=== PATIENT | female | born 1975 | race Caucasian/White ===

== ENCOUNTER 2017-08-09 08:00 | Outpatient (CLI) | payer SELFPAY ==
[2017-08-09 19:02] LABS: BASOPHILS # (AUTO) 0.1 10^3/uL (0.0-0.1); BASOPHILS % (AUTO) 0.4 %; EOSINOPHILS # (AUTO) 0.1 10^3/uL (0.0-0.7); EOSINOPHILS % (AUTO) 0.7 %; HGB - HEMOGLOBIN 13.8 g/dL (12.0-16.0); LYMPHOCYTES # (AUTO) 3.1 10^3/uL (1.5-3.5); LYMPHOCYTES % (AUTO) 21.7 %; MEAN CORPUSCULAR HEMOGLOBIN 28.9 pg (27.0-31.0); MEAN CORPUSCULAR HGB CONC 32.8 g/dL (32.0-36.0); MEAN PLATELET VOLUME 7.8 fL (7.9-10.8); MONOCYTES # (AUTO) 0.7 10^3/uL (0.0-1.0); MONOCYTES % (AUTO) 5.1 %; NEUTROPHILS # (AUTO) 10.4 10^3/uL (1.5-6.6); NEUTROPHILS % (AUTO) 72.1 %; PLT - PLATELET COUNT 278 10^3/uL (130-450); RED BLOOD COUNT 4.79 10^6/uL (4.20-5.40); RED CELL DISTRIBUTION WIDTH 12.6 % (12.0-15.0); WHITE BLOOD COUNT 14.4 x10^3/uL (4.8-10.8)
[2017-08-09 19:36] LABS: ALBUMIN 4.3 g/dL (3.2-5.5); ALBUMIN/GLOBULIN RATIO 1.5 (1.0-2.2); ALKALINE PHOSPHATASE 66 IU/L (42-121); ALT ALANINE AMINOTRANSFERASE 19 IU/L (10-60); AST ASPARTATE AMINOTRANSFERASE 18 IU/L (10-42); BILIRUBIN,TOTAL 0.4 mg/dL (0.2-1.0); BUN - BLOOD UREA NITROGEN 12 mg/dL (6-20); CALCIUM 9.3 mg/dL (8.5-10.3); CARBON DIOXIDE - CO2 26 mmol/L (21-32); CHLORIDE 107 mmol/L (101-111); CHOL/HDL RATIO 3.3 (<4.4); CHOLESTEROL 188 mg/dL; CREATININE 0.9 mg/dL (0.4-1.0); GFR - MDRD 69 (>89); GLUCOSE 97 mg/dL (70-100); HDL CHOLESTEROL 57 mg/dL; LDL CHOLESTEROL,CALCULATED 97 mg/dL; LDL/HDL RATIO 1.7 (<4.4); SODIUM 138 mmol/L (135-145); TOTAL PROTEIN 7.2 g/dL (6.7-8.2); VLDL CHOLESTEROL 34 mg/dL
== END 2017-08-09 08:01 | disposition home or self-care (01) ==
LOC: LAB.N 08:00
PROVIDERS: ATTEND Nurse Practitioner Gerontology
DX: Z13.9 Encounter for screening, unspecified (principal)
CPT/HCPCS: 36415; 80053; 80061; 83721; 84443; 85025

== ENCOUNTER 2018-12-31 10:04 | Outpatient (CLI) | payer MEDICAID ==
--- NOTE | 2018-12-31 12:22 | Mammography Report ---
Reason: SCREENING EXAM FOR BREAST CANCER Procedure Date: 12/31/2018 Accession Number: [id number] / [id number] Procedure: MGN - Screening Mammo Dig Bilat CPT Code: FULL RESULT: EXAM: Screening Mammo Dig Bilat DATE: 12/31/2018 10:27 AM CLINICAL HISTORY: New baseline examination. TECHNIQUE: (B) - Bilateral CC and MLO views were obtained. COMPARISON: None PARENCHYMAL PATTERN: (A) - The breasts demonstrate scattered fibroglandular densities bilaterally. FINDINGS: There are no suspicious masses, skin thickening, calcifications, or areas of distortion. IMPRESSION: Negative examination. BI-RADS category 1. RECOMMENDATION: (ANNUAL) - Recommend routine annual screening mammography. BI-RADS CATEGORY: (1) - Negative. STANDARD QUALIFYING STATEMENTS: 1. This examination was not reviewed with the aid of Computer-Aided Detection (CAD). 2. A negative or benign imaging report should not preclude biopsy if clinically suspicious findings are present. 3. Dense breasts may obscure an underlying neoplasm. 4. This examination was reviewed without the aid of 3D breast imaging (tomosynthesis).
== END 2018-12-31 10:05 | disposition home or self-care (01) ==
LOC: DI.N 10:04
PROVIDERS: ATTEND Nurse Practitioner Gerontology
DX: Z12.31 Encounter for screening mammogram for malignant neoplasm of breast (principal)
CPT/HCPCS: 77067

== ENCOUNTER 2021-09-28 06:49 | Outpatient (CLI) | payer OTHER ==
[2021-09-28] MEDS ORDERED: IOVERSOL 320 100 ML VIAL IVP ONE ×2 (07:06→14:27)
[2021-09-28] MEDS ORDERED: IOVERSOL 320 50 ML VIAL ONE (07:06)
--- NOTE | 2021-09-28 13:27 | CT Report ---
PROCEDURE: Abdomen/Pelvis W INDICATIONS: LEFT LOWER QUAD ABD PAIN CONTRAST: IV CONTRAST: Optiray 320 ml: 100 PO CONTRAST: Optiray 320 ml50 TECHNIQUE: After the administration of IV and oral contrast, 5 mm thick sections acquired from the diaphragms to the symphysis. 5 mm thick coronal and sagittal reformats were acquired. For radiation dose reducti on, the following was used: automated exposure control, adjustment of mA and/or kV according to marc ent size. COMPARISON: None. FINDINGS: Image quality: Excellent. ABDOMEN: Lung bases: Lung bases are clear. Heart size is normal. Solid organs: Liver and spleen are normal in size and enhancement. Gallbladder is normal. Biliary system is non dilated. Pancreas enhances normally. No adrenal nodules. Kidneys demonstrate normal size and enhancement, without hydronephrosis. Peritoneum and bowel: Bowel loops demonstrate normal wall thickness and caliber. No free fluid or a ir. The appendix was not visible. There are occasional diverticula in the sigmoid colon. No acute or chronic appearing diverticulitis. Nodes and vessels: No retroperitoneal or mesenteric adenopathy by size criteria. Aorta and inferior vena cava are normal in size. Miscellaneous: No ventral hernias. PELVIS: Genitourinary: Bladder wall thickness is normal. The uterus and left ovary are normal. There is a p eripherally hypervascular follicle within the right ovary consistent with a corpus luteum. No signifi cant adnexal fluid. Miscellaneous: No inguinal hernias or adenopathy. Bones: No suspicious bony lesions. No vertebral body compression fractures. IMPRESSION: 1. No evidence of acute process. 2. Occasional sigmoid diverticula without acute or chronic appearing inflammation. 3. Physiologic right ovarian corpus luteum without rupture. Reviewed by: Megan Calderon MD on 09/28/2021 1:26 PM PDT Approved by: Megan Calderon MD on 09/28/2021 1:26 PM PDT Station ID: [id number]
[2021-09-28] MEDS ORDERED: IOVERSOL 320 50 ML VIAL PO ONE (14:27)
== END 2021-09-28 06:50 | disposition home or self-care (01) ==
LOC: DI 06:49
PROVIDERS: ATTEND Physician Assistant
DX: K57.30 Diverticulosis of large intestine without perforation or abscess without bleeding (principal); N83.11 Corpus luteum cyst of right ovary
CPT/HCPCS: 74177; Q9967

== ENCOUNTER 2022-10-21 14:32 | Outpatient (CLI) | payer OTHER ==
--- NOTE | 2022-10-21 18:55 | XRAY Report ---
PROCEDURE: Ankle 3 View RT INDICATIONS: ANKLE JOINT PAIN, RIGHT TECHNIQUE: 3 views of the ankle were acquired. COMPARISON: None. FINDINGS: Bones: No fractures or dislocations. Ankle mortise is normally aligned. No suspicious bony lesions . Soft tissues: No tibiotalar joint effusion. Achilles tendon appears normal. IMPRESSION: No acute bony abnormality. Reviewed by: Andrea Vargas MD on 10/21/2022 5:54 PM AKDT Approved by: Andrea Vargas MD on 10/21/2022 5:54 PM AKDT Station ID: [id number]
== END 2022-10-21 14:33 | disposition home or self-care (01) ==
LOC: DI 14:32
PROVIDERS: ATTEND Registered Nurse
DX: M25.571 Pain in right ankle and joints of right foot (principal)